=== PATIENT | female | born 2005 | race Caucasian/White ===

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

== ENCOUNTER 2023-02-10 09:45 | Emergency (ER) | payer OTHER ==
[2023-02-10 09:52] VITALS: BP 124/78; PULSE 78; RESP 18; TEMP 98.2; BMI 40.2
[2023-02-10] MEDS ORDERED: KETOROLAC TROMETHAMINE 30 MG/1 ML VIAL IM ONE (10:50)
[2023-02-10] MEDS ORDERED: CYCLOBENZAPRINE HCL 10 MG TABLET (FP) PO ONE (10:50)
[2023-02-10] MEDS ORDERED: LIDOCAINE 4% PATCH TP ONE ×2 (10:50→10:59)
[2023-02-10] MEDS ORDERED: ACETAMINOPHEN 500 MG TABLET (FP) PO ONE (10:50)
[2023-02-10] MEDS ORDERED: ACETAMINOPHEN 500 MG TABLET (FP) ONE (10:59)
[2023-02-10] MEDS ORDERED: KETOROLAC TROMETHAMINE 30 MG/1 ML VIAL ONE (11:00)
[2023-02-10] MEDS ORDERED: CYCLOBENZAPRINE HCL 10 MG TABLET (FP) ONE (11:00)
[2023-02-10] MEDS ORDERED: LIDOCAINE PATCH REMOVAL MC ONE (22:00)
== END 2023-02-10 12:07 | disposition home or self-care (01) ==
LOC: JERFT 09:45
PROC: 3E0233Z Introduction of Anti-inflammatory into Muscle, Percutaneous Approach (ICD-10-PCS; principal; 2023-02-10)
DX: M54.50 Low back pain, unspecified (principal); G89.29 Other chronic pain; M54.2 Cervicalgia; V43.54XA Car driver injured in collision with van in traffic accident, initial encounter; Y93.I9 Activity, other involving external motion
CPT/HCPCS: 72100-TC-FY; 99284-25

== ENCOUNTER 2023-04-14 12:13 | Emergency (ER) | payer OTHER ==
[2023-04-14 12:35] VITALS: BP 122/81; PULSE 99; RESP 18; TEMP 97.8; BMI 43.0
[2023-04-14] MEDS ORDERED: ACETAMINOPHEN 1000 MG/100 ML BAG IVPB ONE (12:59)
[2023-04-14] MEDS ORDERED: ONDANSETRON 4 MG/2 ML VIAL IVPUSH ONE (12:59)
[2023-04-14] MEDS ORDERED: SODIUM CHLORIDE 0.9% 500 ML INFUS.BAG IV ONE (12:59)
[2023-04-14] MEDS ORDERED: ONDANSETRON 4 MG/2 ML VIAL ONE (13:08)
[2023-04-14] MEDS ORDERED: ACETAMINOPHEN INJECTION 100 ML IVPB ONE (13:08)
[2023-04-14 13:49] LABS: BASO % 0.2 % (0-2.0); EOS % 1.8 % (0-4.5); HEMATOCRIT 37.8 % (32.4-45.2); HEMOGLOBIN 12.6 GM/dL (10.7-15.3); MCH 29.2 pg (25.7-33.7); MCHC 33.4 g/dl (32.0-36.0); MEAN CELL VOLUME 87.6 fl (80-96); MEAN PLT VOLUME 8.6 fl (7.5-11.1); MONO % 5.9 % (3.8-10.2); NEUT % 79.1 % (42.8-82.8); PLATELET COUNT 235 10^3/uL (134-434); RBC 4.32 M/mm3 (3.60-5.2); RDW 12.7 % (11.6-15.6); WHITE BLOOD COUNT 7.9 K/mm3 (4.0-10.0)
[2023-04-14 14:14] LABS: POTASSIUM 3.8 mmol/L (3.5-5.1)
[2023-04-14 14:16] LABS: CALCIUM 8.9 mg/dL (8.5-10.1)
[2023-04-14 14:17] LABS: ALBUMIN 3.6 g/dl (3.4-5.0); BLOOD UREA NITROGEN 14.5 mg/dL (7-18)
[2023-04-14 14:20] LABS: CREATININE 0.7 mg/dL (0.55-1.3)
[2023-04-14 14:37] LABS: BILIRUBIN,TOTAL 0.7 mg/dL (0.2-1); TOT PROT 7.6 g/dl (6.4-8.2)
== END 2023-04-14 14:50 | disposition home or self-care (01) ==
LOC: JER 12:13
PROC: 3E033NZ Introduction of Analgesics, Hypnotics, Sedatives into Peripheral Vein, Percutaneous Approach (ICD-10-PCS; principal; 2023-04-14)
PROC: 3E033GC Introduction of Other Therapeutic Substance into Peripheral Vein, Percutaneous Approach (ICD-10-PCS; 2023-04-14)
DX: R19.7 Diarrhea, unspecified (principal); R11.2 Nausea with vomiting, unspecified; R10.84 Generalized abdominal pain; Z20.822 Contact with and (suspected) exposure to COVID-19
CPT/HCPCS: 0241U-QW; 36415; 80053; 83690; 84703; 85025; 99284-25

== ENCOUNTER 2024-01-04 21:59 | Emergency (ER) | payer OTHER ==
[2024-01-04 22:03] VITALS: BP 144/83; PULSE 88; RESP 20; TEMP 98.6; BMI 43.9
[2024-01-04] MEDS ORDERED: diphenhydrAMINE HCL 25 MG CAPSULE (FP) PO ONE (22:42)
[2024-01-04] MEDS: FAMOTIDINE 10 MG TABLET PO ONE (22:45)
[2024-01-04] MEDS: diphenhydrAMINE HCL 25 MG CAPSULE (FP) PO ONE ×2 (22:45)
== END 2024-01-04 22:47 | disposition home or self-care (01) ==
LOC: JERFT 21:59
DX: L50.0 Allergic urticaria (principal); L29.9 Pruritus, unspecified
CPT/HCPCS: 99283-25